=== PATIENT | female | born 1940 | race Caucasian/White ===

== ENCOUNTER 2017-01-25 14:49 | Inpatient (IN) ==
[2017-01-25] MEDS ORDERED: NS 1,000 ML IV SCH ×2 (17:04→18:23)
[2017-01-25 17:07] LABS: BASO% 0.5 % (0.0-0.8); EOS# 0.23 X1000 (0.0-0.7); EOS% 2.6 % (0.0-10.0); HEMATOCRIT 40.8 % (37.0-47.0); HEMOGLOBIN 13.4 g/dL (12.0-16.0); IMM GRAN# 0.02 X1000 (0.0-0.04); IMM GRAN% 0.2 % (0.0-0.5); LYMPH# 0.63 X1000 (1.2-3.4); LYMPH% 7.2 % (20.5-51.1); MANUAL DIFF NEEDED? NO; MCH 30.4 PG (27-31); MCHC 32.8 g/dL (33-37); MCV 92.5 FL (81-99); MONO# 0.16 X1000 (0.11-0.59); MONO% 1.8 % (1.7-9.3); MPV 10.2 FL (7.4-10.4); NEUT% 87.7 % (42.2-75.2); PLT 197 X1000 (130-400); RBC 4.41 XMIL (4.2-5.4)
[2017-01-25] MEDS ORDERED: LEVAQUIN 500 MG/D5W 500 MG/100 ML IVPB IV SCH (17:15)
[2017-01-25 17:17] LABS: ALBUMIN 3.6 g/dL (3.5-5.0); CALCIUM 10.2 mg/dL (8.8-10.2); POTASSIUM 4.1 mmol/L (3.5-5.1); TOTAL BILIRUBIN 0.8 mg/dL (0.20-1.00); TOTAL PROTEIN 7.1 g/dL (6.3-8.3)
[2017-01-25] MEDS ORDERED: ZOFRAN IV PRN (18:23)
[2017-01-25] MEDS ORDERED: DUONEB (A & A) INH PRN (18:23)
[2017-01-25] MEDS ORDERED: TYLENOL PO PRN (18:23)
[2017-01-25] MEDS ORDERED: SOLU-MEDROL IV SCH (18:30)
[2017-01-25] MEDS: DUONEB (A & A) INH SCH ×2 (19:30→23:12)
[2017-01-25] MEDS: SOLU-MEDROL IV SCH (20:04)
[2017-01-25] MEDS ORDERED: DUONEB (A & A) INH SCH (22:00)
[2017-01-26] MEDS ORDERED: TUMS PO ONE (00:04)
[2017-01-26] MEDS: DUONEB (A & A) INH SCH ×5 (03:22→19:32)
[2017-01-26] MEDS: SOLU-MEDROL IV SCH (04:41)
--- NOTE | 2017-01-26 06:24 | Diag Imaging Result Doc PS360 ---
EXAM: CHEST-2 VIEWS HISTORY: pna TECHNIQUE: COMPARISON: 11/13/2015 FINDINGS: There is increased density in the right middle lobe. Heart is not enlarged. The lungs are hyperexpanded. There is an increased AP diameter to the chest. The pulmonary vessels are small. No pleural effusions. Moderate scoliosis. Mild increased markings in the mid right lung. Scarring in the mid left lung. IMPRESSION: 1.Mass versus right middle lobe pneumonia with atelectasis 2.Emphysema Electronically signed by Kaushik Boyle 01/26/2017 6:21 AM
--- NOTE | 2017-01-26 08:31 | Diag Imaging Result Doc PS360 ---
US ABDOMEN-COMPLETE - 01/25/2017 INDICATION: AAA TECHNIQUE: Whitaker scale, color Doppler, and duplex evaluation of the abdomen was performed. COMPARISON: None FINDINGS: The liver appears normal in size and echotexture. There are multiple simple hepatic cysts. The largest measures 3.8 cm. The IVC and aorta were obscured by bowel gas artifact. The pancreas is obscured as well. The gallbladder is surgically absent. The common bile duct measures 5 mm. The portal vein is patent with hepatopetal flow. Spleen is unremarkable. The kidneys appear normal bilaterally. There is no hydronephrosis. IMPRESSION: 1.Abdominal aorta appears obscured by bowel gas artifact . 2.Multiple simple hepatic cysts. 3.Status post cholecystectomy. Electronically signed by Annelise Centeno 01/26/2017 8:29 AM
[2017-01-26] MEDS ORDERED: SEPTRA DS PO SCH (09:00)
[2017-01-26] MEDS ORDERED: HYDROCHLOROTHIAZIDE PO SCH (12:00)
[2017-01-26] MEDS ORDERED: [UNRECOGNIZED DRUG - OTHER] PO SCH (12:00)
[2017-01-26] MEDS ORDERED: OLMESARTAN PO SCH (12:00)
--- NOTE | 2017-01-26 12:34 | PROGRESS NOTE ---
DATE: 01/26/2017 SUBJECTIVE: The patient notes that she feels terrible this morning, although could not describe why she felt terrible. After many questions, it appears as though she feels terrible because she did not sleep last night. She does state that she is at her normal stable baseline breathing at home. States that she is always on oxygen and always wheezes at home. OBJECTIVE: Temperature 97.9 degrees, pulse 104-108, respiratory rate 18, blood pressure 123/59, saturation 92% to 98% on room air.General: The patient is an elderly female who is in mild respiratory distress. She is awake, alert. Currently, speech is regular. Memory is intact. Neck: Supple. Cardiovascular: Regular rate. Chest: Clear. Abdomen: Soft. Extremities: Moves all extremities. Neurologic: No focal changes. ASSESSMENT: Chronic obstructive pulmonary disease with mild exacerbation. Stable. Will continue breathing treatments. Continue antibiotics. We will decrease her Solu-Medrol, as this may help her sleep at night. We will check a CT of her chest. Continue to await blood culture and sputum culture. Further orders as needed. cc: Sb Arceo MD
--- NOTE | 2017-01-26 14:33 | HISTORY AND PHYSICAL ---
CHIEF COMPLAINT: Cough. HISTORY OF PRESENT ILLNESS: The patient is a 76-year-old female who presented to her primary care, ELIOT Jiang, in [place]. She was noted to have increased cough, congestion, increased work of breathing per the patient and shortness of breath. She denies any fevers, chills. Denied any production of the cough. Chest x-ray was obtained which demonstrated what appeared to be either a mass or a right middle lobe infection. She therefore was talked to and subsequently transfer in the hospital. SOCIAL HISTORY: She is . Lives at home. ELIOT Noble, is her primary care provider. PAST MEDICAL HISTORY: 1. Multiple strokes, history of TIAs. 2. Hypertension. 3. Chronic obstructive pulmonary disease with chronic wheezing. 4. Hyperlipidemia. 5. Chronic hypoxemia on 2 L at home. 6. Chronic osteoarthritis. PAST SURGICAL HISTORY: Cholecystectomy, hysterectomy. FAMILY HISTORY: Noncontributory. ALLERGIES: Penicillin, IV dye, morphine, oxycodone, sulfa, and Percocet. HOME MEDICATIONS: Benicar HCT 20/12.5, Prevacid, Neurontin 300 three times a day, vitamin D, Celebrex 200 once a day, calcium 20, aspirin 81, and Ventolin inhaler. PHYSICAL EXAMINATION: VITAL SIGNS: Temperature 97, pulse 108, respiratory rate 18, BP 123/59, saturating 98% on 2 L. GENERAL: Patient is awake, alert. She is currently in mild respiratory distress. HEENT: Normocephalic, atraumatic. NECK: Supple. CV: Regular rate. CHEST: Decreased breath sounds. Positive wheezing. Moderately labored bilaterally. ABDOMEN: Soft. EXTREMITIES: Moves all extremities. NEUROLOGIC: No changes. LABS: Currently pending. ASSESSMENT: 1. Right middle lobe pneumonia. 2. Chronic obstructive pulmonary disease with moderate exacerbation. 3. Chronic hypoxemia. 4. Hypertension. 5. Diabetes. 6. Known coronary artery disease. 7. Chronic tobacco abuse. PLAN: Will admit patient to the hospital. IV antibiotics, IV fluids, steroids, breathing treatments, and will follow. cc: Sb Arceo MD
[2017-01-26] MEDS ORDERED: NEURONTIN PO SCH (15:00)
--- NOTE | 2017-01-26 15:06 | HISTORY AND PHYSICAL ---
PRIMARY CARE PROVIDER: ELIOT Noble. CHIEF COMPLAINT: "I have pneumonia." HISTORY OF PRESENT ILLNESS: This is a 76-year-old female with a prior history of COPD with home O2, hypertension, and gastroesophageal reflux disease, who presents to the emergency room complaining of increasing shortness of breath despite her regular home regimen. She presents as a direct admit from her primary care provider's office after being found to have pneumonia. The patient states that she just feels bad all over, she aches all over. She cannot describe a specific complaint. She states that her respiratory status is just a little bit worse than normal. She does not feel she is in distress at this time, yet she did earlier this morning, prompting her to be seen. She is being admitted for further evaluation and treatment. PAST MEDICAL HISTORY: COPD, hypertension, prior TIA, gastroesophageal reflux disease, diverticulosis, history of gastric ulcers, reported spinal cancer. PAST SURGICAL HISTORY: Cholecystectomy, hysterectomy, cancer removal, and cataract surgery. SOCIAL HISTORY: She does smoke about a pack a day. She does have occasional alcohol use. She denies illicit drug use. ALLERGIES: Iodine contrast media causes anaphylaxis; penicillin, anaphylaxis; morphine, Percocet, and sulfa cause nausea and vomiting. HOME MEDICATIONS: A list will be obtained. REVIEW OF SYMPTOMS: Fourteen-point review of systems is discussed with patient, with pertinent positives being increasing shortness of breath and dyspnea on exertion, generalized aches - "feeling bad all over." She denied chest pain, palpitations, dizziness, syncope, nausea, vomiting, diarrhea, constipation, any black or bloody vomitus, black or bloody stools. PHYSICAL EXAMINATION: GENERAL: This is a 76-year-old female who is sitting up in the bed in no distress. VITAL SIGNS: Blood pressure is 124/71 with a heart rate of 96, respirations are 20, temperature is 97.9 degrees, with oxygen saturations of 92% to 96% on 2L nasal cannula. CARDIOVASCULAR: Regular rate and rhythm. S1 and S2 appreciated. PULMONARY: Chest has scattered wheezes throughout, with no increased work of breathing noted. GASTROINTESTINAL: Abdomen is soft, nontender, and nondistended, with bowel sounds in all 4 quadrants. EXTREMITIES: No clubbing, cyanosis, or edema. Calves are nontender. Pulses are palpable x4. NEUROLOGIC: She is alert and oriented x3. Cranial nerves 2-12 grossly intact. ASSESSMENT: 1. Chronic obstructive pulmonary disease with mild exacerbation. 2. Mass versus pneumonia, right middle lobe, with atelectasis. 3. Hypertension. 4. Gastroesophageal reflux disease. 5. Tobacco use and abuse. The patient will be admitted to med/surg floor. She will be placed on telemetry. We will give supplemental oxygen, of course. DuoNeb q.4 hours and q.2 hours p.r.n. Steroids to taper. We will identify her home medications and continue as appropriate. Blood cultures will be obtained and we will start Levaquin for antibiotic coverage. We will obtain baseline laboratories as well as a PA and lateral chest x-ray. Further treatments pending hospital course. Dictated by ELIOT Caputo for Sb Arceo MD cc: ELIOT Caputo MD
[2017-01-26] MEDS ORDERED: SOLU-MEDROL IV SCH (16:00)
--- NOTE | 2017-01-26 16:05 | Diag Imaging Result Doc PS360 ---
EXAM: CT THORAX W/O CONTRAST HISTORY: PNEUMONIA TECHNIQUE: Images were obtained from the lung apices through bases as per standard protocol. COMPARISON: Chest radiograph 01/25/2017 FINDINGS: Evaluation is limited by lack of IV contrast. There is a large apparent lobulated mass in the right hilum producing mild right middle lobe atelectasis. The precise margins of the mass difficult to differentiate from surrounding structures due to lack of contrast but by best estimate the mass measures approximately 5 cm. There is an additional mass within the peripheral right upper lobe 88 sequence 3 which measures 2.1 cm. with an adjacent cyst or pneumatocele. There is right hilar, precarinal, and aortopulmonary window lymphadenopathy. Some of the right hilar adenopathy is calcified. There is a trace pericardial effusion. There is coronary artery and atherosclerotic aortic calcification. Nonspecific hypodensities within the liver or shown to represent cysts on prior ultrasound. Extensive vascular calcification is noted within the upper abdomen. Vague nonspecific areas of increased attenuation are noted in the lingula. There is a marked thoracolumbar scoliosis with previous kyphoplasty. No effusion or pneumothorax. IMPRESSION: Findings highly suspicious for large primary bronchogenic carcinoma right lung with postobstructive atelectasis, mediastinal and hilar lymphadenopathy, and satellite lesion right upper lobe Electronically signed by Annelise Centeno 01/26/2017 4:03 PM
[2017-01-26 19:56] VITALS: BP 122/62
[2017-01-26] MEDS ORDERED: LIPITOR PO SCH (21:00)
[2017-01-27] MEDS ORDERED: PRILOSEC PO SCH (07:00)
[2017-01-27] MEDS ORDERED: ASPIRIN PO SCH (09:00)
[2017-01-27] MEDS ORDERED: BENICAR PO SCH (09:00)
[2017-01-27] MEDS ORDERED: VITAMIN D PO SCH (09:00)
[2017-01-27] MEDS ORDERED: LEVAQUIN 750 MG/D5W 750 MG/150 ML IVPB IV SCH (09:00)
[2017-01-27] MEDS ORDERED: CELEBREX PO SCH (09:00)
[2017-01-27] MEDS ORDERED: HYDROCHLOROTHIAZIDE PO SCH (09:00)
--- NOTE | 2017-01-27 18:43 | DISCHARGE SUMMARY ---
ADMISSION DATE: 01/25/2017 DISCHARGE DATE: 01/26/2017 DISCHARGE DIAGNOSES: 1. Mass right upper lobe likely bronchogenic carcinoma. 2. Chronic hypoxic respiratory failure. 3. Chronic chronic obstructive pulmonary disease. 4. Mild postobstructive pneumonia improved. 5. Chronic tobacco abuse. Discussed with patient the perils of smoking although she declined any desire to stop. 6. Hypertension. 7. Anxiety. CONSULTATIONS: None. PROCEDURE: None. BRIEF HOSPITAL COURSE: The patient is a 76-year-old female who was admitted with a questionable pneumonia. It appeared more masslike with possible obstructive pneumonia. She was admitted to the hospital, given IV fluids, antibiotics, breathing treatments, oxygen. CT scan was obtained which demonstrated highly suspicious lesion for large primary bronchogenic carcinoma with postobstructive atelectasis and mediastinal and hilar adenopathy as well as a possible satellite lesion on the right upper lobe. On the date of discharge Ms. Shell is demanding discharge stating that she had medications at home and that she was not going to stay in the hospital any longer. Therefore, she was allowed to be discharged. DISPOSITION: We did discharge her with a short course of steroid taper as well as antibiotics. Discussed with her the importance to follow up with her primary provider within 1 week so that arrangements could be made to begin clarification of the lesion in her right upper lobe as well as the treatment plans. TIME SPENT: Forty-five minutes was spent in total care. cc: Sb Arceo MD
== END 2017-01-26 21:02 | disposition home or self-care (01) ==
LOC: P.DIRADM 14:49 → P.MEDSURG 14:59
PROVIDERS: ADMIT Family Medicine; ATTEND Family Medicine

== ENCOUNTER 2017-03-31 06:13 | Inpatient (IN) ==
[2017-03-31 06:57] LABS: BE 9.8 mmoll (-3.0-3.0); BLOOD TYPE ARTERIAL; DRAW SITE R RADIAL; METHB 1.5 % (0.0-1.5); O2(CT) 15.3 mL/dL (15.0-23.0); PO2(98.6) 56 mmHg (60-100); SAMPLE BLOOD; SAO2 93.7 % (95.0-100.0); THB 12.2 g/dL (11.5-17.4); pH(98.6) 7.39 (7.35-7.45)
[2017-03-31 07:04] LABS: PCO2(98.6) 61 mmHg (35-45)
[2017-03-31 07:05] LABS: ALLEN TEST YES; MODALITY VENTIMASK
[2017-03-31 07:35] LABS: ALBUMIN 3.8 g/dL (3.5-5.0); BASO% 0.3 % (0.0-0.8); CALCIUM 11.2 mg/dL (8.8-10.2); EOS# 0.18 X1000 (0.0-0.7); EOS% 1.2 % (0.0-10.0); HEMATOCRIT 39.1 % (37.0-47.0); HEMOGLOBIN 12.5 g/dL (12.0-16.0); IMM GRAN# 0.05 X1000 (0.0-0.04); IMM GRAN% 0.3 % (0.0-0.5); LYMPH# 0.81 X1000 (1.2-3.4); LYMPH% 5.4 % (20.5-51.1); MANUAL DIFF NEEDED? NO; MCH 29.8 PG (27-31); MCV 93.1 FL (81-99); MONO# 1.09 X1000 (0.11-0.59); MONO% 7.3 % (1.7-9.3); MPV 10.3 FL (7.4-10.4); NEUT% 85.5 % (42.2-75.2); PLT 246 X1000 (130-400); POTASSIUM 5.2 mmol/L (3.5-5.1); TOTAL BILIRUBIN 0.9 mg/dL (0.20-1.00); TOTAL PROTEIN 7.3 g/dL (6.3-8.3)
[2017-03-31 08:41] LABS: CK INDEX 0.7 (0.0-2.5); CK-MB 2.66 ng/mL (0.0-5.0)
[2017-03-31] MEDS: LEVAQUIN 750 MG/D5W 750 MG/150 ML IVPB IV SCH (11:53)
[2017-03-31] MEDS ORDERED: LEVAQUIN 750 MG/D5W 750 MG/150 ML IVPB IV SCH (12:00)
[2017-03-31] MEDS ORDERED: TYLENOL PO PRN (12:00)
[2017-03-31] MEDS: NS 1,000 ML IV SCH (13:07)
[2017-03-31 13:11] LABS: INR 0.98; PROTIME 10.3 Seconds (9.2-11.7); PTT 24.6 Seconds (22.0-36.0)
[2017-03-31] MEDS: PROTONIX IV SCH (13:45)
[2017-03-31] MEDS: SOLU-MEDROL IV SCH ×2 (13:46→20:48)
[2017-03-31] MEDS: SODIUM CHLORIDE 0.9% INJ SCH (13:46)
[2017-03-31] MEDS: AZACTAM 1 GM in NS 50 ML IV SCH ×2 (13:46→21:08)
[2017-03-31 14:58] LABS: BILIRUBIN URINE NEGATIVE (NEGATIVE); BLOOD URINE SMALL (NEGATIVE); COLOR YELLOW; GLUCOSE URINE NEGATIVE (NEGATIVE); LEUKOCYTES URINE NEGATIVE (NEGATIVE); NITRITE URINE NEGATIVE (NEGATIVE); PH URINE 5.5; PROTEIN URINE 30 mg/dL (NEGATIVE); SP GRAVITY URINE 1.022; TURBIDITY URINE CLEAR (CLEAR); URINE CULTURE NEEDED? NO; URINE MICRO REVIEW NEEDED? NO; URINE SOURCE CATH; UROBILINOGEN URINE NORMAL (NORMAL)
[2017-03-31 15:00] LABS: UR EPITHELIAL CELLS <10 /HPF (<10); URINE BACTERIA NEGATIVE /HPF; URINE RBC <10 /HPF (<10); URINE WBC <10 /HPF (<10)
[2017-03-31 15:17] LABS: UR CREAT RANDOM 180.8 mg/dL (11-20)
[2017-03-31] MEDS: ATROVENT NEB INH SCH ×4 (15:48→23:29)
[2017-03-31] MEDS: XOPENEX NEB INH SCH ×4 (15:49→23:29)
[2017-03-31] MEDS: NEURONTIN PO SCH ×2 (15:59→20:44)
[2017-03-31] MEDS: PULMICORT INH SCH (18:56)
[2017-03-31] MEDS: MUCOMYST 20% INH SCH (18:56)
[2017-03-31 19:08] LABS: DIFF NEEDED? YES; SPECIMEN PLEURAL FLUID; WBC BF 4912 /cumm
[2017-03-31 19:36] LABS: MONOS 21 %; POLYS 79 %
[2017-03-31 20:03] LABS: TOTAL PROT BODY FLUID 3.3 g/dL
[2017-03-31] MEDS: LIPITOR PO SCH (20:42)
[2017-03-31] MEDS ORDERED: HEPARIN SUBQ SCH (21:00)
[2017-04-01] MEDS: SOLU-MEDROL IV SCH ×4 (01:34→19:26)
[2017-04-01] MEDS: ATROVENT NEB INH SCH ×6 (03:51→23:16)
[2017-04-01] MEDS: XOPENEX NEB INH SCH ×6 (03:51→23:16)
[2017-04-01 04:45] LABS: ALLEN TEST YES; BLOOD TYPE ARTERIAL; DRAW SITE R RADIAL; METHB 0.9 % (0.0-1.5); MODALITY VENTIMASK; O2(CT) 11.2 mL/dL (15.0-23.0); PO2(98.6) 59 mmHg (60-100); SAMPLE BLOOD; SAO2 93.5 % (95.0-100.0); THB 8.7 g/dL (11.5-17.4); pH(98.6) 7.31 (7.35-7.45)
[2017-04-01 04:46] LABS: PCO2(98.6) 71 mmHg (35-45)
[2017-04-01] MEDS: AZACTAM 1 GM in NS 50 ML IV SCH ×3 (05:28→21:30)
[2017-04-01 05:51] LABS: ALBUMIN 3.1 g/dL (3.5-5.0); CALCIUM 10.8 mg/dL (8.8-10.2); POTASSIUM 4.4 mmol/L (3.5-5.1); TOTAL BILIRUBIN 0.56 mg/dL (0.20-1.00); TOTAL PROTEIN 6.6 g/dL (6.3-8.3)
[2017-04-01 05:58] LABS: EOS# 0.01 X1000 (0.0-0.7); EOS% 0.1 % (0.0-10.0); HEMATOCRIT 34.8 % (37.0-47.0); HEMOGLOBIN 10.9 g/dL (12.0-16.0); IMM GRAN# 0.03 X1000 (0.0-0.04); IMM GRAN% 0.2 % (0.0-0.5); LYMPH# 0.22 X1000 (1.2-3.4); LYMPH% 1.7 % (20.5-51.1); MANUAL DIFF NEEDED? YES; MCH 29.7 PG (27-31); MCHC 31.3 g/dL (33-37); MCV 94.8 FL (81-99); MONO# 0.34 X1000 (0.11-0.59); MONO% 2.7 % (1.7-9.3); MPV 10.5 FL (7.4-10.4); NEUT% 95.3 % (42.2-75.2); PLT 241 X1000 (130-400); RBC 3.67 XMIL (4.2-5.4)
[2017-04-01 06:25] LABS: BANDS 8 % (0-1); LYMPHS 2 % (21-51); MONO 4 % (1-9)
[2017-04-01] MEDS: PULMICORT INH SCH ×2 (07:24→20:09)
[2017-04-01] MEDS: MUCOMYST 20% INH SCH ×2 (07:24→20:09)
[2017-04-01] MEDS: NS 1,000 ML IV SCH (08:30)
[2017-04-01] MEDS: NEURONTIN PO SCH ×3 (08:30→21:29)
[2017-04-01] MEDS: VITAMIN D PO SCH (08:30)
[2017-04-01] MEDS: HEPARIN SUBQ SCH ×2 (08:30→21:29)
[2017-04-01] MEDS: LEVAQUIN 750 MG/D5W 750 MG/150 ML IVPB IV SCH (10:59)
[2017-04-01] MEDS: SODIUM CHLORIDE 0.9% INJ SCH (14:09)
[2017-04-01] MEDS: PROTONIX IV SCH (14:09)
[2017-04-01] MEDS: LIPITOR PO SCH ×2 (21:30→22:06)
[2017-04-02] MEDS: SOLU-MEDROL IV SCH ×4 (01:10→22:09)
[2017-04-02] MEDS: XOPENEX NEB INH SCH ×6 (03:51→23:20)
[2017-04-02] MEDS: ATROVENT NEB INH SCH ×6 (03:51→23:20)
[2017-04-02 05:01] LABS: ALLEN TEST YES; BE 7.1 mmoll (-3.0-3.0); BLOOD TYPE ARTERIAL; DRAW SITE R RADIAL; METHB 1.1 % (0.0-1.5); O2(CT) 14.2 mL/dL (15.0-23.0); PO2(98.6) 78 mmHg (60-100); SAMPLE BLOOD; SAO2 97.1 % (95.0-100.0); THB 10.6 g/dL (11.5-17.4); pH(98.6) 7.29 (7.35-7.45)
[2017-04-02 05:02] LABS: MODALITY CANNULA; PCO2(98.6) 74 mmHg (35-45)
[2017-04-02 05:07] LABS: BASO% 0.1 % (0.0-0.8); EOS# 0.02 X1000 (0.0-0.7); EOS% 0.1 % (0.0-10.0); HEMATOCRIT 32.8 % (37.0-47.0); HEMOGLOBIN 10.1 g/dL (12.0-16.0); IMM GRAN# 0.04 X1000 (0.0-0.04); IMM GRAN% 0.3 % (0.0-0.5); LYMPH# 0.54 X1000 (1.2-3.4); LYMPH% 3.6 % (20.5-51.1); MANUAL DIFF NEEDED? YES; MCH 29.4 PG (27-31); MCHC 30.8 g/dL (33-37); MCV 95.3 FL (81-99); MONO# 0.86 X1000 (0.11-0.59); MONO% 5.7 % (1.7-9.3); MPV 10.3 FL (7.4-10.4); NEUT% 90.2 % (42.2-75.2); PLT 253 X1000 (130-400); RBC 3.44 XMIL (4.2-5.4)
[2017-04-02] MEDS: AZACTAM 1 GM in NS 50 ML IV SCH ×3 (05:08→22:09)
[2017-04-02 05:21] LABS: BANDS 6 % (0-1); LYMPHS 6 % (21-51); MONO 6 % (1-9)
[2017-04-02 05:30] LABS: CALCIUM 10.4 mg/dL (8.8-10.2); POTASSIUM 4.3 mmol/L (3.5-5.1)
[2017-04-02] MEDS: MUCOMYST 20% INH SCH ×2 (07:32→19:20)
[2017-04-02] MEDS: PULMICORT INH SCH ×2 (07:32→19:20)
[2017-04-02] MEDS: HEPARIN SUBQ SCH ×2 (10:43→22:09)
[2017-04-02] MEDS: LEVAQUIN 750 MG/D5W 750 MG/150 ML IVPB IV SCH (10:43)
[2017-04-02] MEDS: VITAMIN D PO SCH (10:43)
[2017-04-02] MEDS: NEURONTIN PO SCH ×3 (10:43→22:55)
[2017-04-02] MEDS: SODIUM CHLORIDE 0.9% INJ SCH (13:39)
[2017-04-02] MEDS: PROTONIX IV SCH (13:39)
[2017-04-02] MEDS: LIPITOR PO SCH (22:55)
[2017-04-03] MEDS: ATROVENT NEB INH SCH ×6 (03:15→23:04)
[2017-04-03] MEDS: XOPENEX NEB INH SCH ×6 (03:15→23:04)
[2017-04-03] MEDS: SOLU-MEDROL IV SCH ×4 (04:41→22:00)
[2017-04-03] MEDS: AZACTAM 1 GM in NS 50 ML IV SCH ×3 (05:36→21:51)
[2017-04-03] MEDS: PULMICORT INH SCH ×2 (07:28→19:02)
[2017-04-03] MEDS: MUCOMYST 20% INH SCH ×2 (07:28→19:02)
[2017-04-03] MEDS: HEPARIN SUBQ SCH ×2 (09:45→21:51)
[2017-04-03] MEDS: NEURONTIN PO SCH ×3 (09:46→21:51)
[2017-04-03] MEDS: VITAMIN D PO SCH (09:46)
[2017-04-03] MEDS: LEVAQUIN 750 MG/D5W 750 MG/150 ML IVPB IV SCH (11:55)
[2017-04-03] MEDS: PROTONIX IV SCH (14:22)
[2017-04-03] MEDS: SODIUM CHLORIDE 0.9% INJ SCH (14:22)
[2017-04-03] MEDS: LIPITOR PO SCH (21:51)
[2017-04-04] MEDS: ATROVENT NEB INH SCH ×3 (04:04→11:26)
[2017-04-04] MEDS: XOPENEX NEB INH SCH ×3 (04:04→11:27)
[2017-04-04] MEDS: SOLU-MEDROL IV SCH ×2 (04:42→11:35)
[2017-04-04] MEDS: AZACTAM 1 GM in NS 50 ML IV SCH ×2 (05:14→14:51)
[2017-04-04 06:26] VITALS: BP 138/76
[2017-04-04] MEDS: MUCOMYST 20% INH SCH (07:52)
[2017-04-04] MEDS: PULMICORT INH SCH (07:52)
[2017-04-04] MEDS: NEURONTIN PO SCH (09:09)
[2017-04-04] MEDS: VITAMIN D PO SCH (09:09)
[2017-04-04] MEDS: HEPARIN SUBQ SCH (09:09)
[2017-04-04] MEDS: LEVAQUIN 750 MG/D5W 750 MG/150 ML IVPB IV SCH (11:35)
[2017-04-04] MEDS: PROTONIX IV SCH (14:50)
== END 2017-04-04 14:51 | disposition hospice, home (50) ==
LOC: P.ED 06:13 → 4N 09:41 → SUATTDRO 09:41 → 3S 12:37 → 3N 04-02 13:41
PROVIDERS: ATTEND Internal Medicine